=== PATIENT | male | born 1970 | race Caucasian/White ===

== ENCOUNTER 2017-11-08 12:49 | Emergency (ER) | payer OTHER ==
--- NOTE | 2017-11-08 13:28 | EDPHY ---
H & P Time Seen by Provider: 11/08/17 12:59 HPI/ROS: CHIEF COMPLAINT: High blood pressure HISTORY OF PRESENT ILLNESS: Patient states he was at the [facility] clinic to get a rapid strep today and his blood pressure was elevated. He states he has had a bit of a sore throat over the last couple days and another family member recently diagnosed with strep. At the clinic his blood pressure was elevated. He states that he has been"bad"the last couple weeks as he has not been taking his hydrochlorothiazide lisinopril medication. He has been on this medication for years but secondary to dietary changes and increased exercise he felt that he would be okay going office high blood pressure medication. Once he got home today after the clinic he took his medication but then recheck his blood pressure and it was still elevated so he came in for evaluation. He states he is feeling anxious but denies chest pain, shortness of breath, headache, vision changes or other recent illnesses. He states he has lost 15 lb over the last few months and this has been a result of his increased exercise and dietary changes. REVIEW OF SYSTEMS: Negative except per HPI. General Appearance: Alert, no distress. Eyes: Pupils equal and round no icterus Respiratory: No respiratory distress Cardiovascular: Regular rate and rhythm, no murmurs rubs or gallops. No edema. Neurological: Awake, alert, no focal deficits. Skin: Warm and dry, no rashes. Musculoskeletal: Neck is supple nontender. Extremities are symmetrical, full range of motion, no edema. Psychiatric: Patient is oriented X 3, there is no agitation. Medical/surgical history: Hypertension Social history: No tobacco, occasional alcohol. Constitutional: Initial Vital Signs Temperature (C) 37.2 C 11/08/17 12:50 Heart Rate 87 11/08/17 12:50 Respiratory Rate 16 11/08/17 12:50 Blood Pressure 194/107 H 11/08/17 12:50 O2 Sat (%) 93 11/08/17 12:50 O2 Delivery Mode Room Air Allergies/Adverse Reactions: No Known Allergies Allergy (Verified 11/08/17 13:21) Home Medications: Medication Instructions Recorded Lisinopril/Hctz 20/12.5MG 11/08/17 Medical Decision Making Differential Diagnosis: Differential diagnosis includes but is not limited to hypertensive emergency, essential hypertension, medication noncompliance, ACS. After evaluation patient with asymptomatic hypertension as a result of medication noncompliance. Patient has already restarted his medication and has prescription adequate for several weeks. No signs of hypertensive emergency, acute coronary syndrome , hemodynamic instability. Discussed importance of blood pressure control and recommended he follow up for recheck with his primary care physician prior to his planned trip to [facility] in about 2 weeks. Patient understands return precautions. Stable for discharge. Blood pressure slightly improved on discharge, 187/107. Departure - Departure Disposition: Home, Routine, Self-Care Clinical Impression: Hypertension Qualifiers: Hypertension type: unspecified Qualified Code(s): I10 - Essential (primary) hypertension Condition: Good Instructions: Chronic Hypertension (ED) Additional Instructions: Continue to take her medications daily as discussed. Follow up with Dr. Luciana siddiqi prior to your trip to [facility]. Return to the emergency department if he develops chest pain, shortness of breath, other concerning symptoms. Referrals: Javier Guzman MD [Primary Care Provider] - As per Instructions
[2017-11-08 13:29] VITALS: BP 194/107
== END 2017-11-08 13:37 | disposition home or self-care (01) ==
LOC: CED 12:49
DX: I10 Essential (primary) hypertension (principal)